=== PATIENT | female | born 1960 | race Two or more races ===

== ENCOUNTER 2016-08-04 09:52 | Emergency (ER) | payer SELFPAY ==
[~2016-08-04] VITALS: Ht 154.9 cm; Wt 49.9 kg
--- NOTE | 2016-08-04 10:23 | EKG ---
[facility] [address] [place] [address] Test Date: 2016-08-04 Test Time: 10:15:18 Pat Name: ZHANG NORRIS Department: Room: Gender: F [employer] In[employer]: : [id number] Requested By: Kirk QUINTANA Order Number: [id number] Reading MD: Petr Scott Measurements Intervals [place] Rate: 76 P: 49 CA: 156 QRS: 75 QRSD: 76 T: 52 QT: 390 QTc: 443 Interpretive Statements SINUS RHYTHM Electronically Signed On 08-04-2016 14:08:06 APPLICATION INTEGRATION SPECIALIST by Petr Scott
[2016-08-04 10:54] LABS: POTASSIUM ISTAT 3.3 mmol/L (3.5-5.0)
[2016-08-04] MEDS ORDERED: FAMO20TA5 PO (11:29)
--- NOTE | 2016-08-04 11:29 | PHYS DOC ---
Past Medical History Past Medical History: No Pertinent History Past Surgical History: Tubal ligation Alcohol Use: None Drug Use: None Adult General Chief Complaint Chief Complaint: CHEST PAIN HPI HPI Patient is a 55 year old female who presents with daughter for evaluation of chest pain that started last night when she was going to bed. She describes central lower chest pain that is burning and aching that lasted all night. Symptoms are better since she has gotten up this morning. She has never had pain like this before. Symptoms started at rest. She denies prior exertional symptoms, orthopnea, dyspnea, lightheadedness, palpitations, leg pain or swelling, hemoptysis. She does note months of cough with sputum production as well. Review of Systems Review of Systems Constitutional: Denies fever or chills [] Eyes: Denies change in visual acuity, redness, or eye pain [] HENT: Denies nasal congestion or sore throat [] Respiratory: Denies shortness of breath [] Cardiovascular: No additional information not addressed in HPI [] GI: Denies abdominal pain, nausea, vomiting, bloody stools or diarrhea [] : Denies dysuria or hematuria [] Musculoskeletal: Denies back pain or joint pain [] Integument: Denies rash or skin lesions [] Neurologic: Denies headache, focal weakness or sensory changes [] Endocrine: Denies polyuria or polydipsia [] Allergies Allergies Allergies Coded Allergies Type Severity Reaction Last Updated Verified No Known Drug Allergies 11/15/15 No Physical Exam Physical Exam Constitutional: Well developed, well nourished, no acute distress, non-toxic appearance. [] HENT: Normocephalic, atraumatic, bilateral external ears normal, oropharynx moist, nose normal. [] Eyes: PERRLA, EOMI. [] Neck: Normal range of motion, supple, no stridor. [] Cardiovascular:Heart rate regular rhythm [] Lungs & Thorax: Bilateral breath sounds clear to auscultation. No chest wall tenderness [] Abdomen: Bowel sounds normal, soft, no tenderness. [] Skin: Warm, dry, no erythema, no rash. [] Back: No tenderness, no CVA tenderness. [] Extremities: No tenderness, ROM intact, no edema, no palpable cord. [] Neurologic: Alert and oriented X 3, normal motor function, normal sensory function, no focal deficits noted. [] Psychologic: Affect normal, judgement normal, mood normal. [] Current Patient Data Vital Signs Vital Signs Date Time Temp Pulse Resp B/P Pulse Ox O2 Delivery O2 Flow Rate FiO2 08/04/16 11:45 64 20 146/75 97 Room Air 08/04/16 10:05 98.5 98.5 Lab Values Laboratory Tests Test 08/04/16 10:45 08/04/16 10:51 POC Troponin I 0.00ng/ml (<0.08) POC Hemoglobin 13.6g/dL (12-15) POC Hematocrit 40% (36-40) POC Sodium 142mmol/L (135-145) POC Potassium 3.3mmol/L (3.5-5.0) L POC Chloride 107mmol/L (98-110) POC Total CO2 24mmol/L (23-32) Anion Gap 16mmol/L (6-14) H POC Blood Urea Nitrogen 13mg/dL (8-26) POC Creatinine 0.8mg/dL (0.5-1.4) Glucose Level 80mg/dL (70-99) POC Ionized Calcium (Js) 1.14mmol/L (1.13-1.32) Laboratory Tests 08/04/16 10:51 EKG EKG EKG as interpreted by me as normal sinus rhythm, rate 76, no ST-T changes, normal intervals, no ectopy Radiology/Procedures Radiology/Procedures Chest x-ray as interpreted by me with no acute cardiopulmonary disease process, but has hyperexpansion and diaphragmatic flattening concerning for emphysema Course & Med Decision Making Course & Med Decision Making Pertinent Labs and Imaging studies reviewed. (See chart for details) Laboratory evaluation is unremarkable. Chest x-ray notable above. Suspect chest pain is GI in nature. Discussed chronic cough is related to COPD. Smoking cessation discussed. Discussed need for primary care follow-up for both problems. Return precautions given. She understands and agrees with plan. Dragon Disclaimer Terell Disclaimer This electronic medical record was generated, in whole or in part, using a voice recognition dictation system. Departure Departure Impression: Primary Impression: Chest pain Additional Impression: COPD (chronic obstructive pulmonary disease) Disposition: 01 HOME, SELF-CARE Condition: STABLE Referrals: NO PCP (PCP) Patient Instructions: Chronic Obstructive Pulmonary Disease, [id number] Additional Instructions: Your chest pain symptoms are concerning for acid reflux. Take famotidine for this. Your cough and chest x-ray is concerning for COPD. Follow-up with your primary care doctor. Return for any concerns. Scripts Famotidine 20 Mg [id number] Mg PO BID #30 TAB Prov:Kirk QUINTANA MD 08/04/16 Problem Qualifiers Primary Impression: Chest pain Chest pain type: other chest pain Qualified Code: R07.89 - Other chest pain Additional Impression: COPD (chronic obstructive pulmonary disease) COPD type: unspecified COPD Qualified Code: J44.9 - Chronic obstructive pulmonary disease, unspecified Kirk QUINTANA MD Aug 04, 2016 11:29
--- NOTE | 2016-08-04 11:31 | RAD ---
Indication: Right side chest pain. Time of exam 11 0 6:00 AM Correlation is made with prior study 11/15/2015. The lungs are hyperinflated consistent with COPD. The heart size is normal. The lungs are clear. No infiltrate is detected. No effusion or pneumothorax is detected. Impression: COPD. No other abnormality is identified.
[2016-08-04 11:45] VITALS: BP 146/75
== END 2016-08-04 11:50 | disposition home or self-care (01) ==
LOC: ER 09:52
DX: J44.9 Chronic obstructive pulmonary disease, unspecified (principal)
CPT/HCPCS: 71020; 80047; 84484; 93005; 99284-25